=== PATIENT | female | born 1940 | race Caucasian/White ===

== ENCOUNTER 2016-11-16 07:09 | Day surgery (SDC) | payer MEDICARE ==
[~2016-11-16] VITALS: Ht 152.4 cm; Wt 81.4 kg
== END 2016-11-16 10:27 | disposition home or self-care (01) ==
LOC: RAD.S 07:09
PROC: 07DR3ZX Extraction of Iliac Bone Marrow, Percutaneous Approach, Diagnostic (ICD-10-PCS; principal; 2016-11-16)
DX: D47.3 Essential (hemorrhagic) thrombocythemia (principal); E03.9 Hypothyroidism, unspecified; D53.9 Nutritional anemia, unspecified; Z88.8 Allergy status to other drugs, medicaments and biological substances; Z79.899 Other long term (current) drug therapy